=== PATIENT | female | born 2000 | race Caucasian/White ===

== ENCOUNTER → 2024-01-27 11:39 | Outpatient (REF) | payer OTHER, SELFPAY | LOC: RAD 11:39 | PROVIDERS: ATTENDING PHYSICIAN Nurse Practitioner | DX: S16.1XXA Strain of muscle, fascia and tendon at neck level, initial encounter (principal) | CPT/HCPCS: 72050 ==

== ENCOUNTER → 2024-02-04 07:17 | Outpatient (REF) | payer OTHER, SELFPAY | LOC: EMG 07:17 | PROVIDERS: ATTENDING PHYSICIAN Nurse Practitioner | DX: I69.354 Hemiplegia and hemiparesis following cerebral infarction affecting left non-dominant side (principal); R20.2 Paresthesia of skin | CPT/HCPCS: 95886; 95909 ==

== ENCOUNTER → 2024-03-02 15:13 | Outpatient (REF) | payer OTHER, SELFPAY | LOC: RAD 15:13 | PROVIDERS: ATTENDING PHYSICIAN Nurse Practitioner | DX: B00.89 Other herpesviral infection (principal) | CPT/HCPCS: 73630 ==

== ENCOUNTER 2024-04-14 13:22 | Emergency (ER) | payer OTHER, SELFPAY ==
[2024-04-14 13:26] VITALS: BP 172/104
--- NOTE | 2024-04-14 14:45 | ED.GENMED ---
History of Present Illness
General
Chief Complaint: Dental Problem
Source: patient
Exam Limitations: none
Time Seen by Provider: 04/14/24 14:20
Nursing documentation reviewed up to this point in time: agreed with
History of Present Illness
History of Present Illness:
Patient presents to ED secondary to worsening left lower tooth pain, which has been ongoing over the past 1 month. Denies fever or chills. Denies difficulty swallowing. However, patient does report that she has had difficulty eating due to pain
and not being able to open her mouth fully. Denies nausea or vomiting. Denies shortness of breath. Patient has seen her dentist, and has already finished course of Z-Fernando, with mild improvement. Since then, patient has been referred to see an
oral surgeon for tooth extraction, root canal, as x-ray also revealed number of wisdom tooth. Unfortunately, patient currently has not been able to be seen or receive recommended treatment, as her insurance is only covering partial treatment and
her lha-lh-loiime expense will be greater than $800.
Past History
Past History
ED Past Medical History: None; Negative Asthma, HTN, Hypercholesterolemia or NIDDM
ED Past Surgical History: None
Social History
Tobacco: Smoker
Alcohol: Occasional
Personal: Single
Living: with family
Review of Systems
Review of Systems
Allergies reviewed?: Yes
Constitutional: Reports no symptoms
EENT: Reports other (toothache)
Respiratory: Reports no symptoms; Denies trouble breathing
ABD/GI: Reports no symptoms; Denies nausea or vomiting
Musculoskeletal: Reports no symptoms
Skin: Reports no symptoms
Neurological: Reports no symptoms
Phy Exam
Physical Exam
Physical Exam:
Physical Exam
General: no apparent distress, not acutely ill. afebrile
Head: nc/at. eomi
Neck: supple. no meningeal signs. no anterior cervical lymphadenopathy
Abdomen: normal bowel sounds. not tender.
Neuro: alert and oriented. no focal neurological deficits
Skin: no rash
Psychiatric: well kept. interactive and cooperative
Extremities: no edema. no calf tenderness.
Course
Vital Signs
Initial and Last Documented VS:
Initial Vital Signs
Temp Pulse Resp BP Pulse Ox
99.8 F 103 18 172/104 100
04/14/24 13:26 04/14/24 13:26 04/14/24 13:26 04/14/24 13:26 04/14/24 13:26
Last Documented Vital Signs
Temp Pulse Resp BP Pulse Ox
99.8 F 99 18 160/90 98
04/14/24 13:26 04/14/24 15:17 04/14/24 15:17 04/14/24 15:17 04/14/24 15:17
MDM/Problems Addressed
MDM/Problems Addressed:
History and exam consistent with likely ongoing pain secondary to underlying dental cavity, as well as wisdom tooth. Otherwise, patient is afebrile, hemodynamically stable, able to speak in full sentences and tolerating secretions, without
difficulty. Patient advised to follow-up with her dentist/oral surgeon for continual evaluation and treatment. In addition, if there is any financial concerns, recommend reaching out to patient advocate through her insurance or seeking evaluation
at local dental clinic as well.
*Critical Care Note
Total Time (30-74mins, 75-104mins- exclusive of procedures): Not Applicable
ED Attending Note
-
Portions of this chart may have been created with voice recognition software.� Occasional wrong word or��sound alike� substitutions may have occurred due to the inherent limitations of voice recognition software.
Discharge Plan
Departure
Patient Disposition: Home (Routine Discharge)
Date of Disposition: 04/14/24
Time of Disposition: 14:46
Patient with high blood pressure during this ER visit?: Yes
Condition: Good
Discharge Problem:
Dental cavity
Instructions: Fractured Tooth (DC), Dental Pain (DC)
Prescriptions:
New
clindamycin HCl 300 mg capsule
300 mg PO BID Qty: 14 0RF
oxycodone-acetaminophen [Percocet] 5-325 mg tablet
1 tab PO Q6HPRN PRN (Reason: pain) Qty: 10 0RF
No Action
sertraline [Zoloft] 50 mg Tablet
50 mg PO HS
oxycodone 5 mg tablet
5 - 10 mg PO Q4HPRN PRN (Reason: moderate to severe pain) Qty: 20 0RF
Referrals:
Angie Sagastume CRNP [Family Provider] -
Activity Restrictions/Additional Instructions:
As discussed, please follow-up with your dentist and oral surgeon for further evaluation and treatment. Your prescriptions have been sent electronically to [facility] pharmacy in [place]. Please continue to supplement prescribed pain medication with
[id number] NSAIDs, i.e. Motrin/ibuprofen/Advil.
Interventions
Interventions:
*Risk Screen - Suicide Last Done: 04/14/24 13:26
*General Assessment Last Done: 04/14/24 13:26
*Neglect/Abuse Screening Last Done: 04/14/24 13:29
*ED COVID-19 Vaccine History Last Done: 04/14/24 13:26
*Nursing Disposition Last Done: 04/14/24 15:17
Discharge Date and Time
Discharge Date/Time: 04/14/24 15:18
Print Language: GEORGIAN
[2024-04-14 15:17] VITALS: BP 160/90
== END 2024-04-14 15:18 | disposition home or self-care (01) ==
LOC: EMR 13:22
PROVIDERS: EMERGENCY PHYSICIAN Emergency Medicine; FAMILY PHYSICIAN Nurse Practitioner
DX: K02.9 Dental caries, unspecified (principal); F17.200 Nicotine dependence, unspecified, uncomplicated
CPT/HCPCS: 99282

== ENCOUNTER → 2024-05-26 10:16 | Outpatient (REF) | payer OTHER, SELFPAY | LOC: HWRAD 10:16 | PROVIDERS: ATTENDING PHYSICIAN Hospitalist | DX: R07.89 Other chest pain (principal) | CPT/HCPCS: 71046 ==

== ENCOUNTER → 2024-06-07 12:34 | Outpatient (REF) | payer OTHER, SELFPAY | LOC: RCS 12:34 | PROVIDERS: ATTENDING PHYSICIAN Hospitalist | DX: R00.2 Palpitations (principal) | CPT/HCPCS: 93225; 93226 ==

== ENCOUNTER → 2024-07-08 14:29 | Outpatient (REF) | payer OTHER, SELFPAY | LOC: HWRAD 14:29 | PROVIDERS: ATTENDING PHYSICIAN Hospitalist | DX: R11.10 Vomiting, unspecified (principal) | CPT/HCPCS: 76536 ==

== ENCOUNTER 2024-07-20 14:32 | Emergency (ER) | payer OTHER, SELFPAY ==
[2024-07-20 14:38] VITALS: BP 155/102
[2024-07-20 14:58] LABS: % Eosinophils 1.1 % (0-6); % Immature Granulocytes 0.4 % (0-0.5); % Lymphocytes 36.2 % (20.5-51.1); % Monocytes 5.2 % (1.7-9.3); % Neutrophils 56.1 % (42.2-75.2); Absolute Basophils 0.1 10^3/uL (0-0.2); Absolute Eosinophils 0.1 10^3/uL (0-0.7); Absolute Lymphocytes 2.9 10^3/uL (1.2-3.4); Absolute Monocytes 0.4 10^3/uL (0.1-0.6); Absolute Neutrophils 4.5 10^3/uL (1.4-6.5); Hematocrit 43.3 % (37.0-47.0); Mean Corp Hgb Conc. 34.6 g/dL (33.0-37.0); Mean Corpuscular Volume 83.8 fL (81.0-99.0); Mean Platelet Volume 9.2 fL (7.4-10.4); Nucleated Red Blood Cells % 0 %; Platelet Count 262 10^3/uL (130-400); Red Blood Cell Count 5.17 10^6/uL (4.20-5.40); Red Cell Dist. Width 11.7 % (11.5-14.5)
[2024-07-20 15:08] LABS: ALT (SGPT) 16 U/L (0-35); AST (SGOT) 19 U/L (14-36); Alkaline Phosphatase 68 U/L (38-126); Blood Urea Nitrogen 11 mg/dl (7-17); Calcium 9.6 mg/dl (8.4-10.2); Carbon Dioxide 25 mmol/L (22-30); Chloride 103 mmol/L (98-107); Glucose 91 mg/dl (70-99); Potassium 3.8 mmol/L (3.5-5.1); Sodium 139 mmol/L (135-145); Total Bilirubin 0.8 mg/dl (0.2-1.3); Total Protein 8.3 g/dl (6.3-8.2); eGFR > 60.00
[2024-07-20 16:04] VITALS: BP 134/96
[2024-07-20 16:06] VITALS: BMI 22.2
--- NOTE | 2024-07-20 16:17 | ED.GENMED ---
History of Present Illness
General
Chief Complaint: Dizziness
Source: patient
Exam Limitations: none
Time Seen by Provider: 07/20/24 15:59
Nursing documentation reviewed up to this point in time: agreed with
History of Present Illness
History of Present Illness:
Patient is a 24-year-old female who presents to the ER for evaluation of elevated blood pressure. She was at her framer office and her blood pressure was elevated. she was unaware that it was elevated.
she was recently diagnosed with POTS by her family doctor. In addition she has had intermittent chest pain for the past 6 to 8 months. She was seen by cardiology here at [facility] June 30 and is scheduled to have an echo
July 28 and a stress test August 04. She reports almost daily she has a least 4 episodes of sharp stabbing midsternal chest pain that radiates under her left breast back into her neck jaw and left arm. She has had associated Shortness of breath
with the CP. Because she was anxious by the blood pressure she feels that she developed chest pain again. She reports this started the waiting room.
In addition to pain she does feel that she has a component of reflux and has a lot of reflux and gagging.
She has had her gallbladder removed.
She does vape nicotine. She is on Depo-Provera. There is no family history of CAD/NE
Past History
Past History
ED Past Medical History: None; Negative Asthma, HTN, Hypercholesterolemia or NIDDM
ED Past Surgical History: None
Social History
Tobacco: Smoker
Alcohol: Occasional
Personal: Single
Living: with family
Review of Systems
Review of Systems
Allergies reviewed?: Yes
All Other Systems: ROS reviewed and negative except as documented in HPI and ROS
Constitutional: Reports no symptoms; Denies fever, fatigue or chills
Respiratory: Reports no symptoms
Cardiac: Reports chest pain
ABD/GI: Reports other (gagging)
: Reports no symptoms
Musculoskeletal: Reports no symptoms
Skin: Reports no symptoms
Neurological: Reports no symptoms
Psychiatric: Reports no symptoms
Phy Exam
General Physical Exam
General Presentation: well appearing
General age: appears stated age
General Skin: warm and dry
General Habitus: normal
General Mental: alert
General Hydration: appears well hydrated
Cardiovascular Exam
Cardiovascular Exam: regular rate/rhythm, no murmur and normal peripheral pulses
Pulmonary Exam
Pulmonary Exam: lungs clear and no respiratory distress
Neurological Exam
Neurological Exam: alert and oriented x3
Musculoskeletal Exam
Musculoskeletal Exam: full ROM and other (No leg swelling bilaterally)
Skin Exam
Skin Exam: normal color and warm/dry
Psychiatric Exam
Psychiatric Exam: normal mood/affect
Course
Orders/Labs/Results
Orders:
Orders
07/20/24 14:43
Electrocardiogram (*1) Urgent
Reason for Study: Hypertension, Benign
EKG- Treatment ONCE
07/20/24 14:48
Complete Blood Count/With Diff Urgent
Comprehensive Metabolic Panel Urgent
HCG, Serum Qualitative Screen Urgent
Comment: ADD ON
07/20/24 16:31
Add On- LAB Urgent
Tests Added?: serum HCG qualitative
07/20/24 16:44
IV Insert/Care/Rem.- Treatment PRN
0.9% Sodium Chloride 1000 ml [Nss] 1,000 ml IV BOLUS
Ketorolac [Toradol] 15 mg IV NOW STA
07/20/24 16:59
DDimer [D-Dimer] Urgent
Troponin I Urgent
07/20/24 17:59
Chest [CR Chest - 2 Views ] Urgent
Comment:
Reason For Exam: cp
Abnormal Lab Results
07/20/24 07/20/24
14:48 16:59
D-Dimer 0.52 H ug/mlFEU
(0.00-0.50)
Total Protein 8.3 H g/dl
(6.3-8.2)
07/20/24 14:48
07/20/24 14:48
Vital Signs
Initial and Last Documented VS:
Initial Vital Signs
Temp Pulse Resp BP Pulse Ox
98.6 F 99 16 155/102 98
07/20/24 14:38 07/20/24 14:38 07/20/24 14:38 07/20/24 14:38 07/20/24 14:38
Last Documented Vital Signs
Temp Pulse Resp BP Pulse Ox
98.6 F 88 16 133/86 100
07/20/24 14:38 07/20/24 18:26 07/20/24 18:26 07/20/24 18:26 07/20/24 18:26
[employer] consulted with Physician
[employer] consulted with physician?: Yes
Name of Physician Consulted: Leon
MDM/Problems Addressed
Differential Diagnosis Includes:
not limited to: less likely PE, ACS, elevated bp, anxiety
MDM/Problems Addressed:
As documented patient is a 24-year-old female with past medical history of POTS. She has been followed by cardiology for this and is scheduled for stress test and echo because she has had months of chest pain with approximate 4 visits per day. She
presented for hypertension and was incidentally found dermatology.
Patient presented anxious because of her blood pressure and did develop chest pain while in the waiting room. She presents awake alert no acute distress nontachycardic nontachypneic afebrile she does vape nicotine is on Depo but no other risk
factors for PE DVT she has no history of DVT PE. She has no cardiac history in her family. Her cardiac troponin is normal and there are no acute findings on her EKG no acute findings on chest x-ray her D-dimer is not clinically significant.
Patient is in no acute distress nontachycardic nontachypneic nonhypoxic no leg swelling. Case discussed with Dr. Taylor.
Patient no acute distress stable for discharge home discussed close outpatient follow-up as scheduled with cardiology for reevaluation of blood pressure and chest pain. She is to return if any worsening of symptoms.
Chronic conditions affecting care:
POTS
*Radiology
Radiology exam reviewed: radiology read reviewed
*Pulse Oximetry
Patient hypoxic: no
*EKG
Interpretation: normal
Heart Rate: 78
Rate: normal
Rhythm: sinus
Ischemia: no ischemia
*Critical Care Note
Total Time (30-74mins, 75-104mins- exclusive of procedures): Not Applicable
ED Attending Note
-
Portions of this chart may have been created with voice recognition software.� Occasional wrong word or��sound alike� substitutions may have occurred due to the inherent limitations of voice recognition software.
Discharge Plan
Departure
Patient Disposition: Home (Routine Discharge)
Date of Disposition: 07/20/24
Time of Disposition: 19:48
Patient with high blood pressure during this ER visit?: Yes
Covid-19: Not Applicable
Discharge Problem:
Chest pain
Instructions: Chest Pain CBC Follow Up, BLOOD PRESSURE
Prescriptions:
No Action
sertraline [Zoloft] 50 mg Tablet
50 mg PO HS
oxycodone 5 mg tablet
5 - 10 mg PO Q4HPRN PRN (Reason: moderate to severe pain) Qty: 20 0RF
clindamycin HCl 300 mg capsule
300 mg PO BID Qty: 14 0RF
oxycodone-acetaminophen [Percocet] 5-325 mg tablet
1 tab PO Q6HPRN PRN (Reason: pain) Qty: 10 0RF
Referrals:
Tara Jaramillo MD [Family Provider] -
Adalid [facility] MD [Active] -
Activity Restrictions/Additional Instructions:
As discussed follow-up with your reel film inspector as scheduled for evaluation and for previously scheduled testing. Return if any worsening of symptoms.
Interventions
Interventions:
*Risk Screen - Suicide Last Done: 07/20/24 14:38
*General Assessment Last Done: 07/20/24 14:38
*Neglect/Abuse Screening Last Done: 07/20/24 14:38
ED- Fall Risk Assessment Last Done: 07/20/24 16:05
*ED COVID-19 Vaccine History Last Done: 07/20/24 14:38
ED- Neurological Assessment Last Done: 07/20/24 16:05
ED- Cardiac Assessment Last Done: 07/20/24 17:18
Discharge Date and Time
Print Language: UPPER SORBIAN
[2024-07-20] MEDS: TORADOL 15 MG IV (17:00)
[2024-07-20] MEDS: NSS 1000 IV (17:01)
[2024-07-20 17:24] LABS: D-Dimer 0.52 ug/mlFEU (0.00-0.50)
[2024-07-20 17:28] LABS: HCG, Serum Qualitative Screen Negative
[2024-07-20 17:42] LABS: Troponin I < 0.012 ng/ml
[2024-07-20 18:26] VITALS: BP 133/86
[2024-07-20 19:57] VITALS: BP 122/76
== END 2024-07-20 19:57 | disposition home or self-care (01) ==
LOC: EMR 14:32
PROVIDERS: Nurse Practitioner; EMERGENCY PHYSICIAN Emergency Medicine; FAMILY PHYSICIAN Hospitalist
DX: R07.89 Other chest pain (principal); R42 Dizziness and giddiness; G90.A Postural orthostatic tachycardia syndrome [POTS]; F17.200 Nicotine dependence, unspecified, uncomplicated; K21.9 Gastro-esophageal reflux disease without esophagitis; Z90.49 Acquired absence of other specified parts of digestive tract
CPT/HCPCS: 99283; 96374; 96361; 71046; 80053; 84484; 84703; 85025; 85379; 93005

== ENCOUNTER 2024-07-23 20:45 | Observation (INO) | payer OTHER, SELFPAY ==
[2024-07-23] VITALS (8 sets, daily range): BP systolic 122–141; BP diastolic 76–93; BMI 22.0
[2024-07-23 12:35] LABS: Glucose - Point of Care 95 mg/dl (70-99)
[2024-07-23 12:51] LABS: % Basophils 0.9 % (0-2); % Eosinophils 0.7 % (0-6); % Immature Granulocytes 0.3 % (0-0.5); % Lymphocytes 22.1 % (20.5-51.1); % Monocytes 3.8 % (1.7-9.3); % Neutrophils 72.2 % (42.2-75.2); Absolute Basophils 0.1 10^3/uL (0-0.2); Absolute Eosinophils 0.1 10^3/uL (0-0.7); Absolute Lymphocytes 1.7 10^3/uL (1.2-3.4); Absolute Monocytes 0.3 10^3/uL (0.1-0.6); Absolute Neutrophils 5.6 10^3/uL (1.4-6.5); Hematocrit 44.1 % (37.0-47.0); Hemoglobin 15.8 g/dL (12.0-16.0); Mean Corp Hgb Conc. 35.8 g/dL (33.0-37.0); Mean Corpuscular Hgb 28.6 pg (27.0-31.0); Mean Corpuscular Volume 79.9 fL (81.0-99.0); Mean Platelet Volume 9.1 fL (7.4-10.4); Nucleated Red Blood Cells % 0 %; Platelet Count 258 10^3/uL (130-400); Red Blood Cell Count 5.52 10^6/uL (4.20-5.40); Red Cell Dist. Width 11.5 % (11.5-14.5); White Blood Cell Count 7.7 10^3/uL (4.8-10.8)
--- NOTE | 2024-07-23 12:52 | ED.GENMED ---
History of Present Illness
<Padmini Charles PA-C - Last Filed: 07/23/24 20:49>
General
Chief Complaint: Fainting Sensation
Source: patient and records
Exam Limitations: none
Time Seen by Provider: 07/23/24 12:34
History of Present Illness
History of Present Illness:
24yoF with a history of anxiety, depression, and POTS presenting via EMS for evaluation of syncope and a headache. Patient reports a headache that has been intermittent for the past 4 days. Her current headache has been constant since last night.
She reports a pain that wraps around her head and radiates into her neck. She currently rates her pain as an 8/10 in severity. She took Tylenol without much relief. She also reports blurred and double vision and feels numb throughout her entire
body. She was walking this morning when she suddenly became dizzy and fell to the ground. She believes she lost consciousness and hit her head. Patient was seen in the ED 2 days ago for chest pain although she denies any chest pain currently.
She was started on a blood pressure medication by her director industrial relations but she is unsure of the name. She took one dose yesterday.
Past History
<Padmini Charles PA-C - Last Filed: 07/23/24 20:49>
Past History
ED Past Medical History: None; Negative Asthma, HTN, Hypercholesterolemia or NIDDM
ED Past Surgical History: None
Social History
Tobacco: Smoker
Alcohol: Occasional
Personal: Single
Living: with family
Phy Exam
<Padmini Charles PA-C - Last Filed: 07/23/24 20:49>
Physical Exam
Physical Exam:
Anxious, tearful
General Physical Exam
General Presentation: well appearing and no apparent distress
General age: appears stated age
General Skin: warm
General Habitus: normal
General Mental: anxious
ENT Exam
ENT Exam: neck supple and normocephalic
Eye Exam
Eye Exam: PERRL and EOMI
Cardiovascular Exam
Cardiovascular Exam: regular rate/rhythm and no murmur
Pulmonary Exam
Pulmonary Exam: lungs clear, no respiratory distress, no rales, no crackles, no rhonchi and no wheezing
Neurological Exam
Neurological Exam: alert and other (Negative driftx4. Speech fluent. CN 2-12 grossly intact. Patient has decreased sensation to pain in all extremities. 2+ patellar reflexes bilaterally.)
Ross Coma Scale
Eye Opening: Spontaneous
Verbal Response: Oriented
Motor Response: Obeys Commands
GCS Total Score: 15
Skin Exam
Skin Exam: normal color and warm/dry
Psychiatric Exam
Psychiatric Exam: anxious
Course
Desiraelt;Padmini Charles PA-C - Last Filed: 07/23/24 20:49>
Orders/Labs/Results
Orders:
Orders
07/23/24 12:36
Test Result ONCE
07/23/24 12:39
Complete Blood Count/With Diff Urgent
Comprehensive Metabolic Panel Urgent
HCG, Serum Qualitative Screen Urgent
07/23/24 12:50
CT Head & Neck Angio W/wo IV Urgent
Comment:
Reason For Exam: Acute headache, dizziness, blurred vision
Cardiac Monitoring- Treatment ONCE
0.9% Sodium Chloride 1000 ml [Nss] 1,000 ml IV BOLUS
Diphenhydramine [Benadryl] 25 mg IV NOW STA
Ketorolac [Toradol] 15 mg IV NOW STA
Magnesium Sulfate 2 Gram/50 ml [Magnesium Sulfate] 2 gram in 50 ml IV NOW
Metoclopramide [Reglan] 10 mg IV NOW STA
07/23/24 12:53
Troponin I Urgent
07/23/24 13:27
Electrocardiogram (*1) Urgent
Reason for Study: Syncope
EKG- Treatment ONCE
07/23/24 13:55
COVID-19 Antigen Urgent
Source: Nasal Swab
Influenza A+B Rapid Molecular Urgent
OSITO Source: Nasal Swab
Specimen Description:
07/23/24 16:47
Dexamethasone Sod Phosphate [Decadron] 10 mg IV NOW STA
Ketorolac [Toradol] 15 mg IV NOW STA
07/23/24 16:51
Acetaminophen [Tylenol] 1,000 mg PO NOW STA
07/23/24 17:45
Urinalysis Reflex To Culture Urgent
Date Specimen was Collected: 07/23/24
Time Specimen was Collected: 16:41
Urine Microscopic Reflex Cult Urgent
Urine Culture Urgent
OSITO Source: U
Specimen Description:
Date Specimen was Collected: 07/23/24
Time Specimen was Collected: 16:41
07/23/24 19:50
Admit/Transfer Patient As Directed
Co-Sign Provider:
Level of Care: Observation services
Assign to:: Telemetry
Physician / Group: Singh
Diagnosis: ALVES, Syncope
Reason for Telemetry: Syncope
Date to Stop Telemetry: 07/25/24
Time to Stop Telemetry: 11:00
Code Status As Directed
Resuscitation Status: Full Code
PRN Pain Medication Management As Directed
May give lesser potent ordered pain med per pt: Yes
preference::
Protocol:: Medication orders for pain may be administered in a
manner that supports deferring to patient preference
when the pt is:
- Requesting an ordered lesser potent pain medication.
Least to most potent pain medications are defined
as: acetaminophen < NSAID < tramadol < opioids
(morphine, oxycodone, hydromorphone).
- Requesting a lesser dose of the same medication IF
ORDERED.
- Requesting a less intrusive route of administration
if both routes are prescribed by the provider (PO <
IV).
07/25/24 11:00
DC Protocol for Telemetry ONCE
Abnormal Lab Results
07/23/24 07/23/24
12:39 17:45
RBC 5.52 H 10^6/uL
(4.20-5.40)
MCV 79.9 L fL
(81.0-99.0)
Carbon Dioxide 19 L mmol/L
(22-30)
Total Protein 8.5 H g/dl
(6.3-8.2)
Albumin 5.4 H g/dl
(3.5-5.0)
Urine Ketones 1+ A
(Negative)
Ur Occult Blood Reflex 3+ A
(Negative)
Leukocyte Esterase Rfl 1+ A
(Negative)
Urine RBC 3-6 A /HPF
(0-2)
Urine Bacteria (Reflex) Many A
(Negative)
07/23/24 12:39
07/23/24 12:39
Vital Signs
Initial and Last Documented VS:
Initial Vital Signs
BP
141/93
07/23/24 12:31
Last Documented Vital Signs
Temp Pulse Resp BP Pulse Ox
99.5 F 86 15 125/86 98
07/23/24 12:32 07/23/24 20:00 07/23/24 20:00 07/23/24 18:00 07/23/24 19:30
<Rodney Espana MD - Last Filed: 07/23/24 13:55>
Orders/Labs/Results
Orders:
Orders
07/23/24 12:36
Test Result ONCE
07/23/24 12:39
Complete Blood Count/With Diff Urgent
Comprehensive Metabolic Panel Urgent
HCG, Serum Qualitative Screen Urgent
07/23/24 12:50
CT Head & Neck Angio W/wo IV Urgent
Comment:
Reason For Exam: Acute headache, dizziness, blurred vision
Cardiac Monitoring- Treatment ONCE
0.9% Sodium Chloride 1000 ml [Nss] 1,000 ml IV BOLUS
Diphenhydramine [Benadryl] 25 mg IV NOW STA
Ketorolac [Toradol] 15 mg IV NOW STA
Magnesium Sulfate 2 Gram/50 ml [Magnesium Sulfate] 2 gram in 50 ml IV NOW
Metoclopramide [Reglan] 10 mg IV NOW STA
07/23/24 12:53
Troponin I Urgent
07/23/24 13:27
Electrocardiogram (*1) Urgent
Reason for Study: Syncope
EKG- Treatment ONCE
07/23/24 13:55
COVID-19 Antigen Urgent
Source: Nasal Swab
Influenza A+B Rapid Molecular Urgent
OSITO Source: Nasal Swab
Specimen Description:
07/23/24 16:47
Dexamethasone Sod Phosphate [Decadron] 10 mg IV NOW STA
Ketorolac [Toradol] 15 mg IV NOW STA
07/23/24 16:51
Acetaminophen [Tylenol] 1,000 mg PO NOW STA
07/23/24 17:45
Urinalysis Reflex To Culture Urgent
Date Specimen was Collected: 07/23/24
Time Specimen was Collected: 16:41
Urine Microscopic Reflex Cult Urgent
Urine Culture Urgent
OSITO Source: U
Specimen Description:
Date Specimen was Collected: 07/23/24
Time Specimen was Collected: 16:41
07/23/24 19:50
Admit/Transfer Patient As Directed
Co-Sign Provider:
Level of Care: Observation services
Assign to:: Telemetry
Physician / Group: Singh
Diagnosis: ALVES, Syncope
Reason for Telemetry: Syncope
Date to Stop Telemetry: 07/25/24
Time to Stop Telemetry: 11:00
Code Status As Directed
Resuscitation Status: Full Code
PRN Pain Medication Management As Directed
May give lesser potent ordered pain med per pt: Yes
preference::
Protocol:: Medication orders for pain may be administered in a
manner that supports deferring to patient preference
when the pt is:
- Requesting an ordered lesser potent pain medication.
Least to most potent pain medications are defined
as: acetaminophen < NSAID < tramadol < opioids
(morphine, oxycodone, hydromorphone).
- Requesting a lesser dose of the same medication IF
ORDERED.
- Requesting a less intrusive route of administration
if both routes are prescribed by the provider (PO <
IV).
07/25/24 11:00
DC Protocol for Telemetry ONCE
Abnormal Lab Results
07/23/24 07/23/24
12:39 17:45
RBC 5.52 H 10^6/uL
(4.20-5.40)
MCV 79.9 L fL
(81.0-99.0)
Carbon Dioxide 19 L mmol/L
(22-30)
Total Protein 8.5 H g/dl
(6.3-8.2)
Albumin 5.4 H g/dl
(3.5-5.0)
Urine Ketones 1+ A
(Negative)
Ur Occult Blood Reflex 3+ A
(Negative)
Leukocyte Esterase Rfl 1+ A
(Negative)
Urine RBC 3-6 A /HPF
(0-2)
Urine Bacteria (Reflex) Many A
(Negative)
07/23/24 12:39
07/23/24 12:39
Vital Signs
Initial and Last Documented VS:
Initial Vital Signs
BP
141/93
07/23/24 12:31
Last Documented Vital Signs
Temp Pulse Resp BP Pulse Ox
99.5 F 86 15 125/86 98
07/23/24 12:32 07/23/24 20:00 07/23/24 20:00 07/23/24 18:00 07/23/24 19:30
<Padmini Charles PA-C - Last Filed: 07/23/24 20:49>
MDM/Problems Addressed
Differential Diagnosis Includes:
24yoF here with a headache, paresthesias in all extremities, double vision. Also had a syncopal episode [employer]. Seen in ED 2 days ago for chest pain. Hx of anxiety, depression, and POTS. VSS. She is anxious and tearful on exam. There is decreased pain
sensation in all extremities. Patellar reflexes intact and there is no drift noted. Differential diagnosis includes but is not limited to: complex migraine, conversion disorder, anxiety, electrolyte abnormality, less likely CVA
Initial ED plan: Check cardiac labs, EKG, COVID/flu swab, and CTA head/neck. IV migraine cocktail and reassess.
<Padmini Charles PA-C - Last Filed: 07/23/24 20:49>
*EKG
Interpreted by ED Provider?: Yes
EKG Intrepretation Date: 07/23/24
Heart Rate: 82
Rate: normal
Rhythm: sinus
Interval: normal interval
QRS Pattern: normal QRS
Ischemia: no ischemia
*Critical Care Note
Total Time (30-74mins, 75-104mins- exclusive of procedures): Not Applicable
<Padmini Charles PA-C - Last Filed: 07/23/24 20:49>
Update Note
Update Note:
Labs overall unremarkable. EKG shows NSR without ischemic changes and troponin WNL. 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 No stenosis or acute intracranial
abnormality noted. Headache improved to 5/10 on reassessment although she continues to have ongoing paresthesias. Will admit for further evaluation and management.
ED Attending Note
<Padmini Charles PA-C - Last Filed: 07/23/24 20:49>
-
Portions of this chart may have been created with voice recognition software.� Occasional wrong word or��sound alike� substitutions may have occurred due to the inherent limitations of voice recognition software.
<Rodney Espana MD - Last Filed: 07/23/24 13:55>
ED Attending Note
Patient seen and examined by attending physician: Yes
I performed the substantive portion of visit, reviewed & personally made and approve the management plan that is documented in note by myself or RHONA.: Yes
ED Attending Note:
Patient's primary complaint appears to be headache. Started early this morning. Different than typical headaches that she gets. Mom found the patient on the floor mumbling. Also hit her head yesterday. Ongoing chest pain lightheadedness fever
last night to 101.
On exam patient is nontoxic in no distress. Vital signs are stable. Normocephalic atraumatic. Neck is supple. Regular rate and rhythm borderline tachycardia. Nonfocal. Warm and dry. Perfusing well.
Impression is multiple complaints. Mostly headache with no acute neurologic symptoms. Low-grade fever last night. Mild head injury yesterday. Ongoing chest pain. Ongoing lightheadedness. Workup in progress.
Discharge Plan
Departure
Patient Disposition: Admit
Date of Disposition: 07/23/24
Time of Disposition: 18:46
Presentation/result/management discussed w/ accepting MD/DO: Hospitalist
Discharge Problem:
Acute headache, Paresthesia, Dizziness
Prescriptions:
No Action
nifedipine 30 mg Tablet Extended Release 24hr
30 mg PO DAILY
escitalopram oxalate [Lexapro] 10 mg Tablet
10 mg PO DAILY
omeprazole 40 mg Capsule,Delayed Release(Dr/Ec)
40 mg PO DAILY
buspirone 10 mg Tablet
10 mg PO DAILY
sulfamethoxazole-trimethoprim
160 mg PO DAILY
Referrals:
Tara Jaramillo MD [Family Provider] -
Discharge Date and Time
Print Language: MACEDONIAN
[2024-07-23] MEDS: TORADOL 15 MG IV ×2 (12:58→17:40)
[2024-07-23] MEDS: NSS 1000 IV (12:58)
[2024-07-23] MEDS: MAGNESIUM SULFATE 50 IV (12:58)
[2024-07-23] MEDS: BENADRYL 25 MG IV (12:59)
[2024-07-23] MEDS: REGLAN 10 MG IV (12:59)
[2024-07-23 13:14] LABS: ALT (SGPT) 18 U/L (0-35); AST (SGOT) 22 U/L (14-36); Albumin 5.4 g/dl (3.5-5.0); Alkaline Phosphatase 83 U/L (38-126); Blood Urea Nitrogen 9 mg/dl (7-17); Carbon Dioxide 19 mmol/L (22-30); Chloride 105 mmol/L (98-107); Glucose 98 mg/dl (70-99); Potassium 3.9 mmol/L (3.5-5.1); Sodium 137 mmol/L (135-145); Total Bilirubin 1.1 mg/dl (0.2-1.3); Total Protein 8.5 g/dl (6.3-8.2); eGFR > 60.00
[2024-07-23 13:15] LABS: HCG, Serum Qualitative Screen Negative
[2024-07-23 13:32] LABS: Troponin I < 0.012 ng/ml
[2024-07-23 14:20] LABS: COVID-19 Antigen Negative (Negative)
[2024-07-23] MEDS: TYLENOL 1000 MG PO (17:41)
[2024-07-23] MEDS: DECADRON 10 MG IV (17:41)
[2024-07-23 17:55] LABS: Urine Albumin Negative (Neg - Trace); Urine Bilirubin Negative (Negative); Urine Character Clear (Clear); Urine Color Yellow; Urine Glucose Negative (Negative); Urine Ketone 1+ (Negative); Urine Leukocyte 1+ (Negative); Urine Nitrite Negative (Negative); Urine Occult Blood 3+ (Negative); Urine Urobilinogen Negative (Neg - 1+)
[2024-07-23 18:06] LABS: Urine Squamous Cell >30 /LPF (Few)
[2024-07-23 18:09] LABS: Urine Bacteria Many (Negative)
--- NOTE | 2024-07-23 19:53 | HPS.HSE ---
Family Physician
-
Family Physician: Tara Jaramillo MD
Chief Complaint
-
Headache
History of Present Illness
Patient is a 24y F with PMH significant for anxiety / depression, POTS who presents to ED complaining of headache. Patient states that she first developed this headache 4 nights ago. Headache is bilateral with radiation into both sides of the
neck. Patient states that headache was quite severe. She was eventually able to fall to sleep and when she woke the headache was gone. She felt better for the next few days. Yesterday evening she had recurrence of the same headache. She states
that it was more severe on this occasion. No focal complaints, numbness, tingling, weakness, etc. Patient again was able to fall to sleep; unfortunately, when she woke this AM the headache was still present. She stood to get out of bed and fell
onto the floor. She believes that she did strike her head. She felt lightheaded immediately prior to the fall and states that she has had multiple similar episodes in the past attributed to POTS.
Family responded to patient and stated that she seemed disoriented with 'mumbling' speech.
911 was called and she was brought to the ED for further evaluation.
In the ED she received a migraine cocktail with improvement in her headache from 9/10 to 5/10.
She is currently awake and alert with no focal complaints.
Patient states that she does have a history of migraines - but not at all similar to these recent symptoms.
Patient is on multiple medications -though she cannot currently recall all meds / doses.
She was started on nifedipine yesterday by Cardiology due to hypertension.
Medical History
Past Medical History
Past Medical History: Reports Other
Additional Past Medical History:
Anxiety / Depression / PTSD
POTS
Russell Danlos
Past Surgical History: Reports Other
Additional Past Surgical History:
Cholecystectomy
Social History
Tobacco: Vaping (Daily vape use.)
Alcohol: None
Drug: None
Living: With Family
Family History
Family History: Not pertinent
Allergies / Home Medications
Allergies reflects when Allergies were last updated in [employer].
Home Medications with original date entered in [employer]
Allergy/Medication List:
Allergies
Allergy/AdvReac Type Severity Reaction Status Date / Time
Penicillins Allergy Rash Verified 07/23/24 12:32
Home Medications
escitalopram oxalate 10 mg tablet (Lexapro) 10 mg PO DAILY 07/23/24
nifedipine 30 mg tablet,extended release 24 hr 30 mg PO DAILY 07/23/24
Patient takes multiple other medications - though she cannot currently recall the names / doses.
Review of Systems
-
History Source: Patient
A 12 point ROS was completed and negative except as noted: Yes
Constitutional: Reports Fatigue; Denies Fever or Chills
EENT: Denies Sore Throat
Respiratory: Denies Cough or Trouble Breathing
Cardiac: Reports Palpitations and Syncope; Denies Chest Pain
Abdomen/GI: Denies Abdominal Pain, Nausea, Vomiting or Diarrhea
: Denies Dysuria, Frequency or Flank Pain
Musculoskeletal: Denies Joint Pain or Edema
Neurological: Reports Headache; Denies Dizzy, Weakness or Numbness
Psych: Reports Depression and Anxiety
Physical Exam
Vital Signs
Vital Signs
Temp Pulse Resp BP Pulse Ox
99.5 F 88 13 125/86 100
07/23/24 12:32 07/23/24 18:30 07/23/24 18:30 07/23/24 18:00 07/23/24 18:30
Physical Exam
General: Other (24y F in no acute distress.)
HEENT: Moist mucous membranes and PERRLA
Respiratory: Clear; No Wheezes, Rales or Rhonchi
Cardiac: S1/S2 and Regular Rhythm; No Murmur
GI: Soft, Non Tender, Non Distended and Normal Bowel Sounds
Musculoskeletal: No Clubbing, No Cyanosis and No Edema
Skin: Other (Nail changes L great toe - likely secondary to prior nail bed injury / trauma. No significant edema, induration, erythema, etc.)
Neuro: AO x 3 and Nonfocal/grossly intact
Laboratory Results
-
07/23/24 12:39
07/23/24 12:39
Laboratory Results
Total Bilirubin 1.1 mg/dl (0.2-1.3) 07/23/24 12:39
AST 22 U/L (14-36) 07/23/24 12:39
ALT 18 U/L (0-35) 07/23/24 12:39
Alkaline Phosphatase 83 U/L (38-126) 07/23/24 12:39
Troponin I < 0.012 ng/ml 07/23/24 12:53
Impression/Plan
-
A/P: Patient is a 24y F with PMH significant for anxiety / depression and POTS who presents to ED for evaluation of headache and syncopal episode.
Headache
- Observe overnight for further evaluation and treatment.
- Continue symptomatic therapy / supportive care.
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
- No indication for advanced imaging at this time.
- Follow for any new complaints, focal neurologic findings, etc.
- Continue efforts to treat underlying anxiety which is likely contributing to all issues.
Syncope
POTS
- Syncopal episode / fall with head injury at home this AM.
- Has had similar episodes in the past secondary to POTS.
- CT without acute findings as noted above.
- Monitor on tele overnight.
- Need formal med reconciliation to see if any potential contributing meds.
- Hold nifedipine - just started yesterday.
- Consider trial of beta-mono if antihypertensive is needed, given POTS.
- Monitor orthostatic signs.
- TEDs / SCDs.
Benign Hypertension
- Recent elevations in BP - also suspect that anxiety / mood is contributing to this.
- Hold nifedipine as noted above.
- Follow for changes in BP.
Anxiety / Depression / PTSD
- Suspect that underlying mood disorder contributing to many symptoms.
- Continue Lexapro. Increase buspirone to BID.
- Add Ativan PRN for now.
- Follow-up with outpatient Psych for changes.
L Great Toe Nail Anomaly
- Patient reports initial infection at nail bed back in January.
- Does not appear infected at present.
- Recently completed doxycycline and then changed to Bactrim.
- Would hold any further abx.
- Do not see anything that requires treatment here.
DVT Prophylaxis: SCDs
Code Status: Full
[2024-07-24] MEDS: TORADOL 10 MG IV (00:24)
[2024-07-24 03:30] VITALS: BP 104/72
[2024-07-24] MEDS: REGLAN 10 MG IV (03:36)
--- NOTE | 2024-07-24 06:07 | PTCARENOTE ---
Patient arrived on unit @2136 via stretcher from ED, ambulate with standby assist to bed. Patient AAOX3 c/o headache 10/08, VSS. Skin assessment completed, oriented to unit, call marvin within reach.
[2024-07-24 06:50] LABS: Hematocrit 40.7 % (37.0-47.0); Hemoglobin 14.5 g/dL (12.0-16.0); Mean Corp Hgb Conc. 35.6 g/dL (33.0-37.0); Mean Corpuscular Hgb 29.1 pg (27.0-31.0); Mean Corpuscular Volume 81.6 fL (81.0-99.0); Mean Platelet Volume 9.9 fL (7.4-10.4); Platelet Count 271 10^3/uL (130-400); Red Blood Cell Count 4.99 10^6/uL (4.20-5.40); Red Cell Dist. Width 11.4 % (11.5-14.5); White Blood Cell Count 7.7 10^3/uL (4.8-10.8)
[2024-07-24 07:08] LABS: Blood Urea Nitrogen 10 mg/dl (7-17); Calcium 9.1 mg/dl (8.4-10.2); Carbon Dioxide 17 mmol/L (22-30); Chloride 106 mmol/L (98-107); Estimated Creatinine Clearance 111 ml/min; Glucose 117 mg/dl (70-99); Potassium 4.5 mmol/L (3.5-5.1); Sodium 136 mmol/L (135-145); eGFR > 60.00
[2024-07-24 07:30] VITALS: BP 112/69
[2024-07-24 07:38] LABS: TSH Reflex To Free T4 0.26 uIU/ml (0.47-4.68)
--- NOTE | 2024-07-24 07:52 | W.PN.HOSP.TC ---
Addendum entered and electronically signed by Rasheed Rodriguez MD 07/24/24 11:42:
Case discussed with Dr. Salguero and he has cleared the pt for discharge from a cardiac standpoint.
Total time spent on d/c = 34 min. This included today's physical exam, progress note, review of laboratory and diagnostic data, preparation of discharge documents and prescriptions, and discussions about the pt's hospital course and discharge plan
with the patient and other medical translator involved in the patient's care.
Addendum entered and electronically signed by Rasheed Rodriguez MD 07/24/24 10:44:
orthostatic VS NEG. Will have cardiology see prior to d/c.
Original Note:
Today's Communication/Plan
-
see bold
Assessment / Plan
Assessment / Plan
24 F with PMH significant for anxiety / depression and POTS who presents to ED for evaluation of headache and syncopal episode.
Patient seen and examined with DARRON Fernandez present at bedside for the entirety of the interview and physical exam
Gen: NAD, AAOx3.
Eyes: EOMI, PERRLA, no scleral icterus.
Neck: supple.
CV: RRR, +S1/S2, no m/r/g.
Resp: CTAB, no rales, wheezes, or rhonchi.
Abd: +BS, soft, NT, ND
Skin: No rashes.
Neuro: CN 2-12 intact, non-focal.
Psych: Normal mood and affect.
CTA head/neck:
NECK CTA:
1. 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
2. No CTA evidence for stenosis, occlusion, or dissection in the left vertebral artery.
3. No CTA evidence for stenosis, occlusion, or dissection of either internal carotid artery.
HEAD CTA:
1. 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
2. No CTA evidence for stenosis or occlusion in the left vertebral artery, basilar artery, or posterior cerebral arteries.
3. No CTA evidence for large vessel arterial stenosis or occlusion in the anterior circulation.
4. No CT evidence for acute intracranial hemorrhage or transcortical infarct.
Syncope
POTS
- Syncopal episode / fall with head injury at home
- Has had similar episodes in the past secondary to POTS.
- CT without acute findings as noted above.
- Tele reviewed, sinus tachy
- Holding nifedipine (just started 1 day [employer]PLICATION TE[employer])
- Consider trial of beta-mono if antihypertensive is needed, given POTS.
- Check orthostatic signs.
- TEDs / SCDs.
-TSH slightly low, fT4 normal, outpt endocrine follow up
Essential Hypertension:
-On admission the patient had elevated blood pressure that was likely due to anxiety/mood
-Holding nifedipine with syncope
-Blood pressures overnight improved
Anxiety / Depression / PTSD
- Suspect that underlying mood disorder contributing to many symptoms.
- Continue Lexapro. Buspirone increased to BID.
- Follow-up with outpatient Psych
L Great Toe Nail Anomaly
- Patient reports initial infection in nail bed back in January.
- Does not appear infected at present.
- Recently completed doxycycline and then changed to Bactrim.
- Would hold any further abx.
- Do not see anything that requires treatment here.
FULL/SCDs
Anticipated Discharge: Today
Subjective/Interval History
-
Date of Service: July 24, 2024
No new complaints. Denies chest pain, shortness of breath headedness.
Objective Data
-
Labs:
Laboratory Results
07/24/24 07/24/24
05:22 05:23
WBC 7.7
Hgb 14.5
Hct 40.7
Plt Count 271
Sodium 136
Potassium 4.5
Chloride 106
Carbon Dioxide 17 L
BUN 10
Creatinine 0.7
Glucose 117 H
Calcium 9.1
Vital Signs:
Vital Signs
Temp Pulse Resp BP Pulse Ox
99.1 F 88 18 104/72 97
07/24/24 03:30 07/24/24 03:30 07/24/24 03:30 07/24/24 03:30 07/24/24 03:30
I&O
07/23/24 07/24/24 07/25/24
06:59 06:59 06:59
Intake Total 360 / 360
Balance 360 / 360
[2024-07-24 08:07] LABS: Free T4 1.33 ng/dl (0.78-2.19)
[2024-07-24] MEDS: LEXAPRO 10 MG PO (08:15)
[2024-07-24] MEDS: BUSPAR 10 MG PO (08:19)
[2024-07-24 09:02] VITALS: BP 126/74; BP 134/85; BP 137/88; PULSE 77; PULSE 80; PULSE 87
[2024-07-24 11:30] VITALS: BP 120/82
--- NOTE | 2024-07-24 11:30 | CON.CAR ---
Addendum entered and electronically signed by Adalid Salguero MD 07/24/24 12:42:
I saw and examined the patient.
The Resident's note was reviewed and I agree with the note.
Comment: 24-year-old female with history of anxiety/depression, POTS, vaping who is here with a complaint of headache. She tells me that she has had a headache for the last several days. It is not gone away. She went to stand up yesterday felt
lightheaded and dizzy and went to lay down. She then says that she laid on her couch and then woke up and route to the emergency room. She does believe she struck her head. She has been having ongoing dizziness for at least the last several
months. She has a pending stress test and echocardiogram. She has had a Holter monitor that was normal.
Syncope likely vasovagal and related to POTS. Discussed cessation of vaping increased exercise as well as staying well-hydrated. She should wear compression stockings as well. She has echocardiogram as well as stress testing for follow-up.
This does not appear cardiac in nature had no prior palpitations and has had ongoing dizziness for months.
She has significant stress as well as anxiety/MDD likely contributing.
Original Note:
Consultation
Consultation Request
Date/Time Consultation Requested: 07/24/2024
Date/Time Consultation Performed: 07/24/2024
Requesting Provider: Dr. Adalid Salguero
Performing Provider: Dr. Adalid Salguero
Reason for Consultation: syncope
Medical History
Past Medical History
Past Medical History: Psychiatric (Anxiety) and Other (Postural orthostatic tachycardia syndrome)
Past Surgical History: Cholecystectomy
Social History
Tobacco: Vaping (Daily)
Alcohol: None
Drug: None
Living: With Family
Allergies / Home Medications
Allergy/AdvReac Type Severity Reaction Status Date / Time
Penicillins Allergy Rash Verified 07/23/24 12:32
�Medication �Instructions �Recorded �Confirmed �Type
buspirone 10 mg tablet 10 mg PO DAILY Mental 07/23/24 07/23/24 History
Health/Anxiety
escitalopram oxalate 10 mg tablet 10 mg PO DAILY Mental 07/23/24 07/23/24 History
(Lexapro) Health/Anxiety
nifedipine 30 mg tablet,extended 30 mg PO DAILY Blood Pressure 07/23/24 07/23/24 History
release 24 hr
omeprazole 40 mg capsule,delayed 40 mg PO DAILY GERD 07/23/24 07/23/24 History
release
sulfamethoxazole-trimethoprim 160 mg PO DAILY Infection 07/23/24 07/23/24 History
Review of Systems
-
All other systems: Negative unless noted
Physical Exam
Vital Signs
Temp Pulse Resp BP Pulse Ox
99.0 F 84 16 112/69 97
07/24/24 07:30 07/24/24 07:30 07/24/24 07:30 07/24/24 07:30 07/24/24 07:30
Lab Results
07/24/24 05:23
07/24/24 05:22
Troponin I < 0.012 ng/ml 07/23/24 12:53
Physical Exam
General: No Apparent Distress and Comfortable
HEENT: Normocephalic and Anicteric
Respiratory: Clear
Cardiac: S1/S2 and Regular Rhythm (79 HR)
Musculoskeletal: No Edema
Neuro: AO x 3
Psych: Calm
Impression / Plan
-
24-year-old female with history of POTS, anxiety presented to the ED for syncope. Cardiology was consulted to evaluate for syncope (cardiogenic vs non cardiogenic ).
Assessment and plan
#Syncope
#Cardiogenic versus noncardiogenic
Likely noncardiogenic with history of POTS
Asymptomatic, vitals remain stable.
No cardiac risk factors. No FM of sudden cardiac .
Multifactorial, psychosocial factors might also be contributing to this
EKG with normal sinus rhythm.
Cardiology outpatient follow-up with echocardiogram and stress test.
--- NOTE | 2024-07-24 11:49 | CM ---
CM following re: discharge planning.
Reviewed pt's chart, met with pt and pt's aunt at bedside.
Pt is a 24 year old female, admitted with OBS status and primary dx of headache and syncopal episode. OBS status explained to the pt, OBS letter placed on chart, pt has a copy.
Pt reports she lives with parents and 2year old daughter in [place], no steps. Pt described herself as independent in all areas [employer].
Discharge order note. Pt is aware and she stated her aunt will transport home.
PCP: Tara Jaramillo
Pharmacy: [facility]
D/C plan: home no needs. Family to transport.
--- NOTE | 2024-07-24 12:57 | W.DCSUMMARY ---
Discharge Summary
Discharge Data
Date of Admission: 07/23/24
Date of Discharge: 07/24/24
-
Pending Results: No
Hospital Course
Primary diagnoses:
Fall with syncope
Postural orthostatic tachycardia syndrome
Secondary diagnoses:
Anxiety
Depression
Posttraumatic stress disorder
L Great Toe Nail Anomaly
Consultants:
Cardiology
Imaging:
CTA head/neck:
NECK CTA:
1. 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
2. No CTA evidence for stenosis, occlusion, or dissection in the left vertebral artery.
3. No CTA evidence for stenosis, occlusion, or dissection of either internal carotid artery.
HEAD CTA:
1. 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
2. No CTA evidence for stenosis or occlusion in the left vertebral artery, basilar artery, or posterior cerebral arteries.
3. No CTA evidence for large vessel arterial stenosis or occlusion in the anterior circulation.
4. No CT evidence for acute intracranial hemorrhage or transcortical infarct.
Hospital course: 24-year-old female who presented yesterday evening with a chief complaint of headache as outlined in the H&P done on admission. She reported that when she woke up in the morning she stood up to get out of bed and fell to the floor.
She felt that she struck her head and passed out. CT brain/CTA head and neck above and without any evidence of trauma. Patient was placed on telemetry which showed sinus rhythm and sinus tachycardia. The patient was started on nifedipine 1 day
prior to admission and this was stopped. Orthostatic vital signs were normal. She was seen in consultation by cardiology and was medically cleared for discharge.
Discharge Plan
-
Patient Disposition: Home (Routine Discharge)
Discharge Diagnosis/Procedures: Syncope with fall
Condition: Good
Diet: Regular
Activity: As tolerated
Driving Restrictions: As prior to admission
Referrals:
Tara Jaramillo MD [Family Provider] - in less than 1 week
Prescriptions:
New
buspirone 10 mg Tablet
10 mg PO BID Qty: 30 0RF
Continued
escitalopram oxalate [Lexapro] 10 mg Tablet
10 mg PO DAILY
omeprazole 40 mg Capsule,Delayed Release(Dr/Ec)
40 mg PO DAILY
sulfamethoxazole-trimethoprim
160 mg PO DAILY
Discontinued
nifedipine 30 mg Tablet Extended Release 24hr
30 mg PO DAILY
buspirone 10 mg Tablet
10 mg PO DAILY
Discharge Orders:
Discharge Patient (As Directed); Ordered 07/24/24
Ordered By: Rasheed Rodriguez
Discharge Date and Time
Discharge Date/Time: 07/24/24 12:38
Print Language: ALBANIAN
== END 2024-07-24 12:38 | disposition home or self-care (01) ==
LOC: 3 WEST ACU 20:45
PROVIDERS: Physician Assistant; ADMITTING PHYSICIAN Hospitalist; ATTENDING PHYSICIAN Internal Medicine; CONSULT PHYSICIAN Internal Medicine Cardiovascular Disease; EMERGENCY PHYSICIAN Emergency Medicine; FAMILY PHYSICIAN Hospitalist
DX: R55 Syncope and collapse (principal); F32.A Depression, unspecified; F41.9 Anxiety disorder, unspecified; G90.A Postural orthostatic tachycardia syndrome [POTS]; R51.9 Headache, unspecified; M54.2 Cervicalgia; H53.2 Diplopia; H53.8 Other visual disturbances; Q28.3 Other malformations of cerebral vessels; W01.10XA Fall on same level from slipping, tripping and stumbling with subsequent striking against unspecified object, initial encounter; Y93.01 Activity, walking, marching and hiking; Y92.009 Unspecified place in unspecified non-institutional (private) residence as the place of occurrence of the external cause; F17.290 Nicotine dependence, other tobacco product, uncomplicated; R20.2 Paresthesia of skin; R41.0 Disorientation, unspecified; I10 Essential (primary) hypertension; F43.10 Post-traumatic stress disorder, unspecified; Q79.60 Ehlers-Danlos syndrome, unspecified; Z79.899 Other long term (current) drug therapy; Z90.49 Acquired absence of other specified parts of digestive tract; Z88.0 Allergy status to penicillin; Z11.52 Encounter for screening for COVID-19
CPT/HCPCS: 70496; 70498; 80048; 80053; 81003; 81015; 82962; 84439; 84443; 84484; 84703; 85025; 85027; 87086; 87502; 87811; 93005; 96361; 96374; 96375; 96376; 99285; G0378; Q9967

== ENCOUNTER → 2024-07-28 13:52 | Outpatient (REF) | payer OTHER, SELFPAY | LOC: HWRCS 13:52 | PROVIDERS: ATTENDING PHYSICIAN Internal Medicine Cardiovascular Disease; FAMILY PHYSICIAN Internal Medicine | DX: R00.2 Palpitations (principal) | CPT/HCPCS: 93306 ==

== ENCOUNTER → 2024-08-04 12:57 | Outpatient (REF) | payer OTHER, SELFPAY | LOC: RCS 12:57 | PROVIDERS: ATTENDING PHYSICIAN Internal Medicine Cardiovascular Disease; FAMILY PHYSICIAN Hospitalist | DX: R00.2 Palpitations (principal) | CPT/HCPCS: 93017 ==

== ENCOUNTER 2025-01-24 06:24 | Day surgery (SDC) | payer OTHER, SELFPAY | END 2025-01-24 13:03 | disposition home or self-care (01) | LOC: GI 06:24 | PROVIDERS: ATTENDING PHYSICIAN Student in an Organized Health Care Education/Training Program | DX: R13.10 Dysphagia, unspecified (principal); R07.89 Other chest pain; R14.0 Abdominal distension (gaseous); R10.84 Generalized abdominal pain; R12 Heartburn | CPT/HCPCS: 43239; 88305; 88342 ==

== ENCOUNTER → 2025-01-24 17:53 | Outpatient (REF) | payer OTHER, SELFPAY | LOC: MRI 3T 17:53 | PROVIDERS: ATTENDING PHYSICIAN Physician Assistant; FAMILY PHYSICIAN Hospitalist; PRIMARYCARE PHYSICIAN Internal Medicine | DX: M54.12 Radiculopathy, cervical region (principal) | CPT/HCPCS: 72156; A9575 ==

== ENCOUNTER → 2025-02-06 09:56 | Outpatient (REF) | payer OTHER, SELFPAY | LOC: HWRAD 09:56 | PROVIDERS: ATTENDING PHYSICIAN Hospitalist | DX: E04.1 Nontoxic single thyroid nodule (principal) | CPT/HCPCS: 76536 ==

== ENCOUNTER → 2025-05-15 10:37 | Outpatient (REF) | payer OTHER, SELFPAY | LOC: MRI 3T 10:37 | PROVIDERS: ATTENDING PHYSICIAN Psychiatry & Neurology Neurology; FAMILY PHYSICIAN Hospitalist; PRIMARYCARE PHYSICIAN Internal Medicine | DX: R20.0 Anesthesia of skin (principal); R20.2 Paresthesia of skin; R25.1 Tremor, unspecified; R40.4 Transient alteration of awareness; R53.1 Weakness; R55 Syncope and collapse; G43.001 Migraine without aura, not intractable, with status migrainosus; G89.29 Other chronic pain; M54.41 Lumbago with sciatica, right side | CPT/HCPCS: 70553; A9575 ==

== ENCOUNTER → 2025-05-29 09:04 | Outpatient (REF) | payer OTHER, SELFPAY ==
--- NOTE | 2025-06-02 09:13 | EEG.RPT ---
Electroencephalogram Report
Recording
Date of EE05/29/25
Type of EEG: Ambulatory
Length of EEG recordin day 23 hours 32 minutes
Done with Video Recording: No
Patient Status: Outpatient
Recording Conditions: Awake, Drowsy and Asleep
Hyperventilation Performed: Yes
Photic Stimulation Performed: Yes
Report
48 HOUR AMBULATORY EEG SUMMARY
AMBULATORY EEG CONCLUSION(S):
Unremarkable EEG for age
CLINICAL CORRELATION:
A normal EEG may not rule out a diagnosis of epilepsy.
The patient�s logs were not available to document clinical symptoms. Patient did indicate to the lift team technician that she experienced episodes of dizziness. Episodes were not associated with epileptiform activity
Consideration for use of epilepsy monitoring unit may be given.
Clinical correlation is advised.
METHODS:
A 21 channel digitized electroencephalogram (EEG) was initiated in the Clinical Neurophysiology Laboratory. The patient wore the device outside of the laboratory and returned after 24 hours for electrode and recorder removal. The 10/20
international system of electrode placement was used with bipolar electrode montage recorded. ECG was monitored. The [employer] quantitative EEG analysis system was utilized.
IMPRESSION(S):
Quality
Good with minor artifact
Background
Maximal wakefulness: alpha
There was a normal anterior-posterior voltage gradient. With eye opening the background activity changed. No significant asymmetries of background activity noted.
Sleep
Drowsiness was suggested by slowing of the background rhythms
Stage I sleep was recorded
Stage 2 sleep was recorded
Slow-wave sleep recorded
Hyperventilation
Produced driving bilaterally symmetrically briefly
Photic stimulation
Failed to produce activation of the record
ECG
Unremarkable
== END ==
LOC: EEG 09:04
PROVIDERS: ATTENDING PHYSICIAN Psychiatry & Neurology Neurology; FAMILY PHYSICIAN Hospitalist
DX: R20.0 Anesthesia of skin (principal); R20.2 Paresthesia of skin; R25.1 Tremor, unspecified; R40.4 Transient alteration of awareness; R53.1 Weakness; R55 Syncope and collapse; G43.001 Migraine without aura, not intractable, with status migrainosus; G89.29 Other chronic pain
CPT/HCPCS: 95708